=== PATIENT | male | born 1990 | race Caucasian/White ===

== ENCOUNTER 2023-11-27 23:43 | Emergency (ER) | payer BC, SELFPAY ==
[2023-11-27 23:50] VITALS: BP 133/98; PULSE 80; RESP 15; TEMP 36.7; O2SAT 100
[2023-11-28] MEDS: HYDROmorphone HCL INJ (*CRX) 1 MG/ML SYR IM ×2 (00:01→00:45)
--- NOTE | 2023-11-28 00:55 | ED.GENADULT ---
HPI - General Adult General Chief complaint: Unspecified <Staci Haines PA-C - Last Filed: 11/28/23 01:40> Stated complaint: hemorrhoid <Staci Haines PA-C - Last Filed: 11/28/23 01:40> Time Seen by Provider: 11/27/23 23:48 <Staci Haines PA-C - Last Filed: 11/28/23 01:40> History of Present Illness HPI narrative: 33-year-old male presents to emergency department with concerns for a hemorrhoid. Patient states he noticed some pain to his rectum after having a bowel movement and straining today. States he has a history of thrombosed hemorrhoids and came to the ED for further evaluation. He reports pain to his rectum, denies bleeding. No fever or abdominal pain. Does state he has intermittent constipation throughout his whole life. Last bowel movement was today. <Staci Haines PA-C - Last Filed: 11/28/23 01:40> Related Data Allergies/adverse reactions: Allergies Allergy/AdvReac Type Severity Reaction Status Date / Time No Known Allergies Allergy Verified 11/27/23 23:44 <Staci Haines PA-C - Last Filed: 11/28/23 01:40> Review of Systems Review of Systems: CONSTITUTIONAL: Denies fever, chills, or sweats. EYES: Denies visual changes, redness, or discharge. ENT: Denies rhinorrhea, congestion, sore throat, or otalgia. CARDIOVASCULAR: Denies chest pain, palpitations, or edema. RESPIRATORY: Denies cough or dyspnea. GASTROINTESTINAL: See HPI GENITOURINARY: Denies dysuria or hematuria. SKIN: Denies rash or itching. MUSCULOSKELETAL: Denies back pain, joint pain, or myalgia. NEUROLOGIC: Denies headache, numbness, or weakness. PSYCHIATRIC: Denies anxiety or depression. <JUAN ANTONIO Kerr Last Filed: 11/28/23 01:40> Exam Narrative: GENERAL: Well-appearing, well-nourished, and in no acute distress. HEAD: Normocephalic, atraumatic. NECK: Supple. CHEST: Clear to auscultation. No respiratory distress. HEART: Regular rate and rhythm. No murmur heard. Normal peripheral pulses. ABDOMEN: Soft, nontender, nondistended, normal active bowel sounds. Rectal exam with prolapsed rectum, approximately 1-2 cm beyond the anal verge with manish edges. No melena or hematochezia. Multiple internal non thrombosed hemorrhoids EXTREMITIES: Normal range of motion. No edema. SKIN: Warm, dry, no rash. NEURO: No focal deficits. Alert and oriented x3 <Staci Haines PA-C - Last Filed: 11/28/23 01:40> Course DEBEADER/PA Physician Supervision For this patient encounter, I reviewed the DEBEADER or PA documentation, treatment plan, and medical decision making and had [id number] time with this patient. I performed all aspects of the MDM as documented. <Katie Rdz MD - Last Filed: 11/28/23 05:04> Vital Signs Vital signs: Vital Signs Temperature 98.1 F 11/27/23 23:50 Pulse Rate 80 11/27/23 23:50 Respiratory Rate 15 11/27/23 23:50 Blood Pressure 133/98 H 11/27/23 23:50 Pulse Oximetry 100 11/27/23 23:50 Oxygen Delivery Room Air 11/27/23 23:50 Temperature 98.1 F 11/27/23 23:50 Pulse Rate 67 11/28/23 01:45 Respiratory Rate 18 11/28/23 01:45 Blood Pressure 138/72 11/28/23 01:45 Pulse Oximetry 100 11/28/23 01:45 Oxygen Delivery Room Air 11/27/23 23:50 <Staci Haines PA-C - Last Filed: 11/28/23 01:40> Vital Signs Temperature 98.1 F 11/27/23 23:50 Pulse Rate 80 11/27/23 23:50 Respiratory Rate 15 11/27/23 23:50 Blood Pressure 133/98 H 11/27/23 23:50 Pulse Oximetry 100 11/27/23 23:50 Oxygen Delivery Room Air 11/27/23 23:50 Temperature 98.1 F 11/27/23 23:50 Pulse Rate 67 11/28/23 01:45 Respiratory Rate 18 11/28/23 01:45 Blood Pressure 138/72 11/28/23 01:45 Pulse Oximetry 100 11/28/23 01:45 Oxygen Delivery Room Air 11/27/23 23:50 <Katie Rdz MD - Last Filed: 11/28/23 05:04> Medical Decision Making MDM Narrative Medical decision making narrative: 33-year-old
[2023-11-28 01:45] VITALS: BP 138/72; PULSE 67; RESP 18; O2SAT 100
== END 2023-11-28 01:46 | disposition home or self-care (01) ==
PROVIDERS: Emergency Provider Physician Assistant
DX: K62.3 Rectal prolapse (principal); K64.9 Unspecified hemorrhoids
CPT/HCPCS: 96372; 99284; J1170